=== PATIENT | female | born 1945 | race Caucasian/White ===

== ENCOUNTER 2016-05-08 07:52 | Day surgery (SDC) | payer MEDICARE, OTHER ==
[~2016-05-08 07:52] MED LIST: IV START KIT ONE; LACTATED RINGERS 1,000 ML IV SCH; LACTATED RINGERS 1,000 ML ONE
[2016-05-08] MEDS ORDERED: PROPOFOL 20 ML IV ONE (08:42)
[2016-05-08] MEDS ORDERED: FENTANYL 5 ML ONE (08:42)
== END 2016-05-08 09:40 | disposition home or self-care (01) ==
LOC: SDC 07:52
PROVIDERS: ATTEND Internal Medicine Gastroenterology
PROC: 0DJD8ZZ Inspection of Lower Intestinal Tract, Via Natural or Artificial Opening Endoscopic (ICD-10-PCS; principal; 2016-05-08)
DX: Z12.11 Encounter for screening for malignant neoplasm of colon (principal); E03.9 Hypothyroidism, unspecified; E78.5 Hyperlipidemia, unspecified; I10 Essential (primary) hypertension; M79.1 Myalgia; Z79.82 Long term (current) use of aspirin
CPT/HCPCS: G0121 ×3